=== PATIENT | female | born 1955 | race Caucasian/White ===

== ENCOUNTER 2018-10-04 22:07 | Emergency (ER) | payer MEDICAID ==
[2018-10-04 22:19] VITALS: Ht 170.2 cm
[2018-10-05 01:17] VITALS: BP 157/83
== END 2018-10-05 01:17 | disposition home or self-care (01) ==
LOC: ED 22:07
DX: S42.202A Unspecified fracture of upper end of left humerus, initial encounter for closed fracture (principal); R07.89 Other chest pain; M25.521 Pain in right elbow; I10 Essential (primary) hypertension; E11.9 Type 2 diabetes mellitus without complications; E78.00 Pure hypercholesterolemia, unspecified; W18.39XA Other fall on same level, initial encounter; Y93.89 Activity, other specified; Y92.89 Other specified places as the place of occurrence of the external cause; Y99.8 Other external cause status
CPT/HCPCS: J1885; Q0092

== ENCOUNTER 2018-10-05 18:37 | Emergency (ER) | payer MEDICAID ==
[~2018-10-05] VITALS: Ht 170.2 cm; Wt 128.8 kg
[2018-10-05 18:47] VITALS: Ht 170.2 cm; Wt 128.8 kg
[2018-10-05 19:40] VITALS: BP 159/80
== END 2018-10-05 19:40 | disposition home or self-care (01) ==
LOC: ED 18:37
DX: M25.521 Pain in right elbow (principal); I10 Essential (primary) hypertension; E11.9 Type 2 diabetes mellitus without complications; E78.00 Pure hypercholesterolemia, unspecified